=== PATIENT | female | born 1980 | race Caucasian/White ===

== ENCOUNTER 2018-04-27 15:53 | Inpatient (IN) | payer MEDICAID ==
[~2018-04-27] VITALS: Ht 160 cm; Wt 48.6 kg
[2018-04-27 15:57] VITALS: Ht 160 cm; Wt 48.6 kg
[2018-04-27 16:35] LABS: BASOPHIL % 0.5 % (0-2); PLATELET COUNT 231 x10^3mcL (130-400); RED CELL DISTRIBUTION WIDTH 13.2 % (11.5-14.5)
[2018-04-27 17:11] LABS: CALCIUM 9.1 mg/dL (8.5-10.1); CARBON DIOXIDE 24.6 mmol/L (21-32); CHLORIDE SERUM 104 mmol/L (98-107); CREATININE SERUM 0.8 mg/dL (0.6-1.0); GFR1 > 60 mL/min; GLUCOSE SERUM 95 mg/dL (74-106); POTASSIUM SERUM 3.2 mmol/L (3.5-5.1); SODIUM SERUM 138 mmol/L (136-145)
[2018-04-27 17:16] LABS: ALBUMIN 4.1 g/dL (3.4-5.0); ALKALINE PHOSPHATASE 76 U/L (46-116); ALT/SGPT 23 U/L (14-59); AST/SGOT 25 U/L (15-37); BILIRUBIN TOTAL 0.37 mg/dL (0.20-1.00); CHOLESTEROL 163 mg/dL (<200); TOTAL PROTEIN, SERUM 7.6 g/dL (6.4-8.2)
[2018-04-27 19:03] LABS: AMPHETAMINE QUAL UR NONE DETECTED (See below)
[2018-04-27 19:28] LABS: CHOLESTEROL/HDL RATIO 3.1; MAGNESIUM 1.9 mg/dL (1.8-2.4); PHOSPHOROUS 1.9 mg/dL (2.5-4.9)
[2018-04-27 19:36] LABS: T3 TOTAL 1.38 ng/mL
[2018-04-27 19:39] LABS: FREE T4 1.08 ng/dL (0.76-1.46); T4(THYROXINE) 8.5 ug/dL (4.7-13.3)
[2018-04-27 20:28] VITALS: BP 111/75
[2018-04-27 20:59] LABS: microscopic required? NO
[2018-04-27 21:19] LABS: urine erythrocyte NEGATIVE (NEGATIVE)
[2018-04-28 05:58] VITALS: BP 94/60
[2018-04-28 06:16] LABS: CALCIUM 8.3 mg/dL (8.5-10.1); CARBON DIOXIDE 28.7 mmol/L (21-32); CHLORIDE SERUM 109 mmol/L (98-107); CREATININE SERUM 0.7 mg/dL (0.6-1.0); GFR1 > 60 mL/min; GLUCOSE SERUM 87 mg/dL (74-106); MAGNESIUM 1.8 mg/dL (1.8-2.4); PHOSPHOROUS 3.4 mg/dL (2.5-4.9); SODIUM SERUM 140 mmol/L (136-145)
[2018-04-28 06:33] LABS: BASOPHIL % 0.5 % (0-2); PLATELET COUNT 179 x10^3mcL (130-400); RED CELL DISTRIBUTION WIDTH 13.3 % (11.5-14.5)
[2018-04-28 09:17] VITALS: BP 104/61
[2018-04-28 13:07] VITALS: BP 95/64
[2018-04-28 17:24] VITALS: BP 88/57
[2018-04-28 18:50] VITALS: BP 101/59
[2018-04-28 20:45] VITALS: BP 97/67
[2018-04-29 05:34] VITALS: BP 101/70
[2018-04-29 06:21] LABS: BASOPHIL % 0.4 % (0-2); PLATELET COUNT 176 x10^3mcL (130-400); RED CELL DISTRIBUTION WIDTH 13.6 % (11.5-14.5)
[2018-04-29 06:42] LABS: CALCIUM 8.1 mg/dL (8.5-10.1); CARBON DIOXIDE 25.9 mmol/L (21-32); CHLORIDE SERUM 108 mmol/L (98-107); CREATININE SERUM 0.6 mg/dL (0.6-1.0); GFR1 > 60 mL/min; GLUCOSE SERUM 78 mg/dL (74-106); POTASSIUM SERUM 3.6 mmol/L (3.5-5.1); SODIUM SERUM 143 mmol/L (136-145)
[2018-04-29 09:34] VITALS: BP 136/70
[2018-04-29 15:59] VITALS: BP 136/70
[2018-04-29 17:11] VITALS: BP 118/78
== END 2018-04-29 18:20 | disposition home or self-care (01) | DRG 815 ==
LOC: ED 15:53 → DU 17:55 → MU 04-28 12:59
PROVIDERS: Family Medicine; Specialist
PROC: 0HQ1XZZ Repair Face Skin, External Approach (ICD-10-PCS; principal; 2018-04-27)
PROC: 0HQKXZZ Repair Right Lower Leg Skin, External Approach (ICD-10-PCS; 2018-04-27)
DX: T67.0XXA Heatstroke and sunstroke, initial encounter (principal); M62.82 Rhabdomyolysis; S05.41XA Penetrating wound of orbit with or without foreign body, right eye, initial encounter; E83.39 Other disorders of phosphorus metabolism; S81.011A Laceration without foreign body, right knee, initial encounter; E86.0 Dehydration; R55 Syncope and collapse; E87.6 Hypokalemia; G40.909 Epilepsy, unspecified, not intractable, without status epilepticus; Z68.1 Body mass index [BMI] 19.9 or less, adult; Z59.0 Homelessness; X30.XXXA Exposure to excessive natural heat, initial encounter; W18.39XA Other fall on same level, initial encounter; Y92.59 Other trade areas as the place of occurrence of the external cause
CPT/HCPCS: 83880; 84439; 90715; G0480; J7030; Q0092; Q0162